=== PATIENT | female | born 1945 | race Caucasian/White ===

== ENCOUNTER → 2017-01-15 | Outpatient (CLI) | payer MEDICARE, OTHER ==
[~2017-01-15] MED LIST: ALDACTONE25 M1 PO; ARIMIDEX1 MG PO; ASPIRIN325 M2 PO; ASPIRIN325 MG PO; ATIVAN0.5 MG PO; CARDOXIN0.25 MG PO; CARVEDILOL6.25 MG PO; COREG25 MG PO; COREG3.125 MG PO; ELAVIL25 MG PO; FENOFIBRATE145 MG PO; JANUVIA100 MG PO; LANOXIN0.25 MG PO; LASIX20 MG PO; LASIX40 MG PO; LISINOPRIL10 MG PO; METFORMIN500 MG PO; MICRO-K EXTENCA8 MEQ PO; MICRO-K8 MEQ PO; NITRO TRANS0.2 MG/HR TD; PLAVIX75 MG PO; PRILOSEC20 MG PO; SIMVASTATIN20 MG PO; TRANSDERM-NITR0.2 MG TD; TRICOR145 MG PO; TYLENOL325 M1 PO; VITAMIN D1000 IU PO; ZOCOR20 MG PO; ZOCOR5 MG PO
== END | disposition home or self-care (01) ==
LOC: CT 09:45
DX: C15.9 Malignant neoplasm of esophagus, unspecified (principal); I25.10 Atherosclerotic heart disease of native coronary artery without angina pectoris; K76.89 Other specified diseases of liver; Z90.49 Acquired absence of other specified parts of digestive tract

== ENCOUNTER → 2017-06-17 | Outpatient (CLI) | payer MEDICARE, OTHER | END | disposition home or self-care (01) | LOC: MAMMO 08:30 | DX: Z45.2 Encounter for adjustment and management of vascular access device (principal); N64.4 Mastodynia; D64.9 Anemia, unspecified; R11.2 Nausea with vomiting, unspecified; D70.2 Other drug-induced agranulocytosis; Z85.01 Personal history of malignant neoplasm of esophagus; Z85.3 Personal history of malignant neoplasm of breast ==

== ENCOUNTER → 2017-07-07 | Outpatient (CLI) | payer MEDICARE, OTHER ==
[2017-07-07 08:47] LABS: CREATININE 1.36 mg/dL (0.55-1.02)
== END | disposition home or self-care (01) ==
LOC: LAB 08:02
PROVIDERS: Surgery
DX: C15.9 Malignant neoplasm of esophagus, unspecified (principal)

== ENCOUNTER → 2017-07-08 | Outpatient (CLI) | payer MEDICARE, OTHER | END | disposition home or self-care (01) | LOC: CT 02:07 | DX: C15.9 Malignant neoplasm of esophagus, unspecified (principal); C50.912 Malignant neoplasm of unspecified site of left female breast; I70.0 Atherosclerosis of aorta; K76.89 Other specified diseases of liver; Z90.49 Acquired absence of other specified parts of digestive tract ==

== ENCOUNTER → 2017-11-15 | Outpatient (CLI) | payer MEDICARE, OTHER ==
[2017-11-15 10:00] LABS: BASO % 0.5 % (0.0-1.0); EOS # 0.2 10*3/uL (0.0-0.4); EOS % 3.8 % (1.0-4.0); HEMATOCRIT 32.1 % (37.0-47.0); HEMOGLOBIN 10.5 g/dl (12.0-16.0); LYMPH # 1.6 10*3/uL (1.3-4.4); LYMPH % 29.3 % (27.0-41.0); MEAN CELL VOLUME 90.4 fl (81.0-99.0); MEAN CORPUSCULAR HGB 29.6 pg (27.0-31.0); MEAN CORPUSCULAR HGB CONC 32.7 g/dl (33.0-37.0); MEAN PLATELET VOLUME 9.2 fl (9.6-12.3); MONO # 0.3 10*3/uL (0.1-1.0); MONO % 4.9 % (3.0-9.0); NEUT # 3.4 10*3/uL (2.3-7.9); NEUT % 61.1 % (47.0-73.0); PLATELET COUNT AUTOMATED 192 10*3/uL (130-400); RED BLOOD COUNT 3.55 10*6/uL (4.10-5.10); WHITE BLOOD COUNT 5.5 10*3/uL (4.8-10.8)
[2017-11-15 10:17] LABS: ACT PARTIAL THROMBO TIME 25.8 SECONDS (20.8-31.5)
[2017-11-15 10:28] LABS: ALBUMIN 3.7 gm/dl (3.1-4.5); ALKALINE PHOSPHATASE 82 U/L (45-117); BILIRUBIN, DIRECT < 0.1 mg/dL (0.0-0.2); BUN 27 mg/dl (7-24); CHLORIDE 101 mmol/L (98-107); CREATININE 1.35 mg/dL (0.55-1.02); PHOSPHOROUS 3.8 mg/dL (2.5-4.9); SGOT/AST 19 IU/L (3-35); SGPT/ALT 20 U/L (12-78); SODIUM 139 mmol/L (136-145); TOTAL PROTEIN 6.9 gm/dL (6.4-8.2)
== END | disposition home or self-care (01) ==
LOC: LAB 09:41
PROVIDERS: Surgery
DX: Z01.818 Encounter for other preprocedural examination (principal); R94.31 Abnormal electrocardiogram [ECG] [EKG]; C15.9 Malignant neoplasm of esophagus, unspecified; K21.9 Gastro-esophageal reflux disease without esophagitis

== ENCOUNTER → 2017-12-30 | Outpatient (CLI) | payer MEDICARE, OTHER | END | disposition home or self-care (01) | LOC: RAD 13:23 | DX: R05 Cough (principal); R06.02 Shortness of breath; M54.9 Dorsalgia, unspecified ==

== ENCOUNTER → 2018-06-07 | Outpatient (CLI) | payer MEDICARE, OTHER ==
[2018-06-07 09:53] LABS: CREATININE 1.23 mg/dL (0.55-1.02)
== END | disposition home or self-care (01) ==
LOC: LAB 08:54 → CT 10:00
PROVIDERS: Surgery
DX: K44.9 Diaphragmatic hernia without obstruction or gangrene (principal)

== ENCOUNTER → 2018-06-23 | Outpatient (CLI) | payer MEDICARE, OTHER | END | disposition home or self-care (01) | LOC: MAMMO 08:46 | DX: R92.1 Mammographic calcification found on diagnostic imaging of breast (principal); Z85.3 Personal history of malignant neoplasm of breast; Z85.01 Personal history of malignant neoplasm of esophagus ==

== ENCOUNTER 2018-11-05 08:22 | Emergency (ER) | payer MEDICARE, OTHER ==
[~2018-11-05] VITALS: Ht 165.1 cm; Wt 76.2 kg
--- NOTE | ~2018-11-05 | EKG ---
[place], [place] ELECTROCARDIOGRAM REPORT NAME: YOSSI DORAOD UNIT #: [id number] [facility]: [facility] BIRTHDATE: [birth year] [facility] Test Date: 2018-11-05 Test Time: 11:05:58 Pat Name: YOSSI DORADO Department: Room: Gender: F Leaf Tier: Ana Luisa Martínez : 1945 Requested By: JEAN PAUL COX Order Number: [id number] Reading MD: Mounika Hernandez MD Measurements Intervals [place] Rate: 77 P: 24 DE: 135 QRS: -18 QRSD: 108 T: 12 QT: 401 QTc: 454 Interpretive Statements Sinus rhythm Borderline left axis deviation Borderline T abnormalities, inferior leads Electronically Signed On 11-05-2018 15:36:49 PDT by Mounika Hernandez MD CM:EKGRPT:ELECTROCARDIOGRAM REPORT [id number] JEAN PAUL NICHOLAS DRAFT REPORT JEAN PAUL COX DO
--- NOTE | ~2018-11-05 | EKG ---
[place], [place] ELECTROCARDIOGRAM REPORT NAME: YOSSI DORADO UNIT #: [id number] ROOM: DOCTOR: EPIPHANY DRAFT REPORT BIRTHDATE: [birth year] [facility] Test Date: 2018-11-05 Test Time: 08:31:14 Pat Name: YOSSI DORADO Department: Room: Gender: F [employer]: : 1945 Requested By: JEAN PAUL COX Order Number: [id number] Reading MD: Mounika Hernandez MD Measurements Intervals [place] Rate: 116 P: 17 IN: 137 QRS: -14 QRSD: 111 T: 20 QT: 333 QTc: 463 Interpretive Statements Sinus tachycardia Ventricular trigeminy Electronically Signed On 11-05-2018 15:36:04 PDT by Mounika Hernandez MD CM:EKGRPT:ELECTROCARDIOGRAM REPORT [id number] JEAN PAUL NICHOLAS DRAFT REPORT JEAN PAUL COX DO
[2018-11-05 08:51] LABS: BASO % 0.2 % (0.0-1.0); EOS # 0.1 10*3/uL (0.0-0.4); EOS % 2.6 % (1.0-4.0); HEMATOCRIT 33.3 % (37.0-47.0); HEMOGLOBIN 10.8 g/dl (12.0-16.0); LYMPH % 21.1 % (27.0-41.0); MEAN CELL VOLUME 90.7 fl (81.0-99.0); MEAN CORPUSCULAR HGB 29.4 pg (27.0-31.0); MEAN CORPUSCULAR HGB CONC 32.4 g/dl (33.0-37.0); MEAN PLATELET VOLUME 10.1 fl (9.6-12.3); MONO # 0.4 10*3/uL (0.1-1.0); MONO % 8.1 % (3.0-9.0); NEUT # 3.2 10*3/uL (2.3-7.9); NEUT % 67.6 % (47.0-73.0); PLATELET COUNT AUTOMATED 156 10*3/uL (130-400); RED BLOOD COUNT 3.67 10*6/uL (4.10-5.10); RED CELL DISTRI WIDTH 13.9 % (0-14.5); WHITE BLOOD COUNT 4.7 10*3/uL (4.8-10.8)
[2018-11-05 08:59] LABS: ACT PARTIAL THROMBO TIME 51.9 SECONDS (20.8-31.5)
[2018-11-05 09:13] LABS: ALBUMIN 3.2 gm/dl (3.1-4.5); ALKALINE PHOSPHATASE 85 U/L (45-117); BUN 28 mg/dl (7-24); CHLORIDE 107 mmol/L (98-107); CREATININE 1.57 mg/dL (0.55-1.02); POTASSIUM 3.7 mmol/L (3.5-5.1); SGOT/AST 16 IU/L (3-35); SGPT/ALT 16 U/L (12-78); SODIUM 138 mmol/L (136-145); TOTAL PROTEIN 6.7 gm/dL (6.4-8.2)
[2018-11-05 09:15] LABS: TROPONIN I < 0.015 ng/ml (<0.045)
[2018-11-05 12:35] VITALS: BP 134/81
== END 2018-11-05 13:10 | disposition home or self-care (01) ==
LOC: ED 08:22
PROVIDERS: Internal Medicine
DX: R07.81 Pleurodynia (principal); R19.7 Diarrhea, unspecified; I11.0 Hypertensive heart disease with heart failure; I50.9 Heart failure, unspecified; E11.9 Type 2 diabetes mellitus without complications; I25.2 Old myocardial infarction; Z85.3 Personal history of malignant neoplasm of breast; Z91.018 Allergy to other foods; Z79.899 Other long term (current) drug therapy

== ENCOUNTER → 2019-03-17 | Outpatient (CLI) | payer MEDICARE, OTHER | END | disposition home or self-care (01) | LOC: LAB 10:15 → RAD 10:15 | DX: M47.816 Spondylosis without myelopathy or radiculopathy, lumbar region (principal); M51.36 Other intervertebral disc degeneration, lumbar region; R05 Cough; R07.9 Chest pain, unspecified; M19.90 Unspecified osteoarthritis, unspecified site ==

== ENCOUNTER → 2019-05-31 | Outpatient (CLI) | payer MEDICARE, OTHER ==
[~2019-05-31] MED LIST changes: +AMITRIPTYLINE25 MG PO; +ASPIRIN FOR CHI81 MG PO; +PLAVIX75 M1 PO; +PRILOSEC20 M1 PO; -PRILOSEC20 MG PO; +REQUIP2 MG PO; -SIMVASTATIN20 MG PO; +SIMVASTATIN5 MG PO
--- NOTE | 2019-05-31 07:00 | NUR ---
INFORMED CONSENT OBTAINED FOR LEXISCAN NUCLEAR STRESS TESTING WITH DR. SALDIVAR. RESTING EKG NSR WITH OCCASIONAL PVC'S WITH A HR OF 76 AND BP OF 138/70. LUNGS CLEAR WITH SPO2 OF 99% ON ROOM AIR. PT COMPLETED A 1:00 LEXISCAN PROTOCOL RECEIVING LEXISCAN 0.4 MG IV OVER 10 SECONDS. HAD NO EKG CHANGES. DID C/O "CHEST TIGHTNESS, HOT FLASH AND ABDOMINIAL CRAMPING" THAT WAS RELIEVED IN RECOVERY. HAD A PEAK HR OF 92 WITH BP OF 122/60. LAST RECOVERY HR OF 84 WITH BP OF 120/62. AWAITING SCANNING IN STABLE CONDITION.
== END ==
LOC: CARD 00:16
DX: I20.9 Angina pectoris, unspecified (principal)

== ENCOUNTER → 2020-04-05 | Outpatient (CLI) | payer MEDICARE, OTHER ==
[2020-04-05 08:24] LABS: CHOLESTEROL 197 mg/dL (<200); HDL CHOLESTEROL 69 mg/dl (40-60); LDL CHOLESTEROL 108 mg/dL (9-159); TRIGLYCERIDES 101 mg/dl (<150); VLDL CHOLESTEROL 20 mg/dL (6-40)
== END | disposition home or self-care (01) ==
LOC: LAB 07:24
PROVIDERS: ATTEND Internal Medicine Cardiovascular Disease
DX: E78.5 Hyperlipidemia, unspecified (principal)

== ENCOUNTER → 2020-07-05 | Outpatient (CLI) | payer MEDICARE, OTHER | END | disposition home or self-care (01) | LOC: COVID19 09:10 | PROVIDERS: ATTEND Internal Medicine | DX: U07.1 COVID-19 (principal) ==

== ENCOUNTER → 2020-07-18 | Outpatient (CLI) | payer MEDICARE, OTHER | END | disposition home or self-care (01) | LOC: MAMMO 07-03 13:30 | PROVIDERS: ATTEND Internal Medicine Hematology & Oncology | DX: Z45.2 Encounter for adjustment and management of vascular access device (principal); Z85.01 Personal history of malignant neoplasm of esophagus; Z85.3 Personal history of malignant neoplasm of breast; Z98.890 Other specified postprocedural states ==

== ENCOUNTER → 2021-07-24 | Outpatient (CLI) | payer MEDICARE, OTHER | LOC: MAMMO 08:40 | PROVIDERS: ATTEND Internal Medicine Hematology & Oncology | DX: Z45.2 Encounter for adjustment and management of vascular access device (principal); Z85.3 Personal history of malignant neoplasm of breast; Z85.01 Personal history of malignant neoplasm of esophagus ==

== ENCOUNTER → 2021-08-21 | Outpatient (CLI) | payer MEDICARE, OTHER ==
[2021-08-21 13:24] LABS: BASO % 0.3 % (0.0-1.0); EOS # 0.3 10*3/uL (0.0-0.4); EOS % 3.7 % (1.0-4.0); HEMATOCRIT 33.6 % (37.0-47.0); LYMPH # 2.1 10*3/uL (1.3-4.4); LYMPH % 29.9 % (27.0-41.0); MEAN CELL VOLUME 92.8 fl (81.0-99.0); MEAN CORPUSCULAR HGB CONC 31.3 g/dl (33.0-37.0); MEAN PLATELET VOLUME 10.3 fl (9.6-12.3); MONO # 0.5 10*3/uL (0.1-1.0); MONO % 6.5 % (3.0-9.0); NEUT # 4.2 10*3/uL (2.3-7.9); NEUT % 59.3 % (47.0-73.0); PLATELET COUNT AUTOMATED 217 10*3/uL (130-400); RED BLOOD COUNT 3.62 10*6/uL (4.10-5.10); RED CELL DISTRI WIDTH 13.9 % (0-14.5); WHITE BLOOD COUNT 7.1 10*3/uL (4.8-10.8)
[2021-08-21 13:36] LABS: ACT PARTIAL THROMBO TIME 27.4 SECONDS (20.0-32.1)
[2021-08-21 13:44] LABS: ALBUMIN 3.6 gm/dl (3.1-4.5); CREATININE 2.03 mg/dL (0.55-1.02); POTASSIUM 5.1 mmol/L (3.5-5.1)
== END | disposition home or self-care (01) ==
LOC: LAB 11:46
PROVIDERS: ATTEND Surgery
DX: I44.7 Left bundle-branch block, unspecified (principal); R94.31 Abnormal electrocardiogram [ECG] [EKG]; I49.3 Ventricular premature depolarization; C15.9 Malignant neoplasm of esophagus, unspecified; Z01.818 Encounter for other preprocedural examination

== ENCOUNTER → 2021-10-07 | Outpatient (CLI) | payer MEDICARE, OTHER ==
[2021-10-07 11:42] LABS: POTASSIUM 4.9 mmol/L (3.5-5.1)
[2021-10-07 12:00] LABS: CREATININE 1.95 mg/dL (0.55-1.02)
== END | disposition home or self-care (01) ==
LOC: LAB 09:28 → CARD 09:30
PROVIDERS: ATTEND Internal Medicine
DX: R06.02 Shortness of breath (principal); N17.9 Acute kidney failure, unspecified

== ENCOUNTER → 2021-11-05 | Outpatient (CLI) | payer MEDICARE, OTHER ==
[~2021-11-05] MED LIST changes: +PROTONIX40 MG PO
== END | disposition home or self-care (01) ==
LOC: CARD 00:22
PROVIDERS: ATTEND Internal Medicine Cardiovascular Disease
DX: I25.5 Ischemic cardiomyopathy (principal); R94.31 Abnormal electrocardiogram [ECG] [EKG]

== ENCOUNTER → 2021-12-11 | Outpatient (CLI) | payer MEDICARE, OTHER | END | disposition home or self-care (01) | LOC: RAD 13:30 | PROVIDERS: ATTEND Internal Medicine | DX: J43.9 Emphysema, unspecified (principal); I51.7 Cardiomegaly; Z78.0 Asymptomatic menopausal state ==

== ENCOUNTER → 2022-05-27 | Outpatient (CLI) | payer MEDICARE, OTHER | END | disposition home or self-care (01) | LOC: CARD 11:31 | PROVIDERS: ATTEND Internal Medicine Cardiovascular Disease | DX: I51.7 Cardiomegaly (principal); I25.5 Ischemic cardiomyopathy ==

== ENCOUNTER → 2022-06-06 | Outpatient (CLI) | payer MEDICARE, OTHER ==
[2022-06-06 10:48] LABS: CREATININE 1.67 mg/dL (0.55-1.02); POTASSIUM 4.4 mmol/L (3.5-5.1)
== END ==
LOC: LAB 09:33
PROVIDERS: ATTEND Internal Medicine Cardiovascular Disease
DX: I10 Essential (primary) hypertension (principal)

== ENCOUNTER → 2022-07-30 | Outpatient (CLI) | payer MEDICARE, OTHER | END | disposition home or self-care (01) | LOC: MAMMO 02:03 | PROVIDERS: ATTEND Internal Medicine Hematology & Oncology | DX: C50.919 Malignant neoplasm of unspecified site of unspecified female breast (principal); Z45.2 Encounter for adjustment and management of vascular access device; R92.2 Inconclusive mammogram; Z85.01 Personal history of malignant neoplasm of esophagus; Z85.3 Personal history of malignant neoplasm of breast ==

== ENCOUNTER → 2022-12-03 | Outpatient (CLI) | payer MEDICARE, OTHER | END | disposition home or self-care (01) | LOC: US 15:45 | PROVIDERS: ATTEND Internal Medicine | DX: N13.30 Unspecified hydronephrosis (principal); N18.31 Chronic kidney disease, stage 3a ==

== ENCOUNTER → 2023-07-30 | Outpatient (CLI) | payer MEDICARE, OTHER | END | disposition home or self-care (01) | LOC: MAMMO 08:39 | PROVIDERS: ATTEND Internal Medicine Hematology & Oncology | DX: C50.919 Malignant neoplasm of unspecified site of unspecified female breast (principal); Z85.01 Personal history of malignant neoplasm of esophagus; Z85.3 Personal history of malignant neoplasm of breast; Z45.2 Encounter for adjustment and management of vascular access device ==

== ENCOUNTER → 2023-11-21 | Outpatient (CLI) | payer MEDICARE, OTHER | END | disposition home or self-care (01) | LOC: RAD 09:37 | PROVIDERS: ATTEND Internal Medicine | DX: M17.12 Unilateral primary osteoarthritis, left knee (principal) ==

== ENCOUNTER → 2024-01-28 | Outpatient (CLI) | payer MEDICARE, OTHER | END | disposition home or self-care (01) | LOC: CARD 02:21 | PROVIDERS: ATTEND Internal Medicine Cardiovascular Disease | DX: I49.3 Ventricular premature depolarization (principal); I25.10 Atherosclerotic heart disease of native coronary artery without angina pectoris; R55 Syncope and collapse ==

== ENCOUNTER → 2024-02-09 | Outpatient (CLI) | payer MEDICARE, OTHER | END | disposition home or self-care (01) | LOC: CARD 01:38 | PROVIDERS: ATTEND Internal Medicine Cardiovascular Disease | DX: I05.8 Other rheumatic mitral valve diseases (principal); I25.10 Atherosclerotic heart disease of native coronary artery without angina pectoris; R55 Syncope and collapse ==

== ENCOUNTER → 2024-02-18 | Outpatient (CLI) | payer MEDICARE, OTHER ==
[2024-02-18 10:08] LABS: HEMATOCRIT 30.9 % (37.0-47.0)
[2024-02-18 10:26] LABS: POTASSIUM 5.2 mmol/L (3.4-5.1)
== END | disposition home or self-care (01) ==
LOC: LAB 09:28
PROVIDERS: ATTEND Internal Medicine Cardiovascular Disease
DX: I25.10 Atherosclerotic heart disease of native coronary artery without angina pectoris (principal)

== ENCOUNTER → 2024-06-09 | Outpatient (CLI) | payer MEDICARE, OTHER ==
[2024-06-09 09:45] LABS: EOS # 0.1 10*3/uL (0.0-0.4); EOS % 3.4 % (1.0-4.0); HEMATOCRIT 29.6 % (37.0-47.0); MEAN CORPUSCULAR HGB 30.8 pg (27.0-31.0); MEAN CORPUSCULAR HGB CONC 32.8 g/dl (33.0-37.0); MEAN PLATELET VOLUME 9.5 fl (9.6-12.3); MONO # 0.3 10*3/uL (0.1-1.0); MONO % 6.5 % (3.0-9.0); NEUT # 2.5 10*3/uL (2.3-7.9); NEUT % 59.2 % (47.0-73.0); PLATELET COUNT AUTOMATED 162 10*3/uL (130-400); RED BLOOD COUNT 3.15 10*6/uL (4.10-5.10); RED CELL DISTRI WIDTH 13.8 % (0-14.5); WHITE BLOOD COUNT 4.2 10*3/uL (4.8-10.8)
[2024-06-09 10:11] LABS: ALKALINE PHOSPHATASE 72 U/L (46-116); BUN 47 mg/dl (9-23); CHLORIDE 104 mmol/L (98-107); CHOLESTEROL 170 mg/dL (<200); FREE T4 1.51 ng/dl (0.89-1.76); LDL CHOLESTEROL 91 mg/dL (9-159); POTASSIUM 4.2 mmol/L (3.4-5.1); TOTAL PROTEIN 6.5 gm/dL (6.0-8.0); TRIGLYCERIDES 93 mg/dl (<150)
[2024-06-09 10:13] LABS: SGPT/ALT < 7 U/L (5-49)
[2024-06-09 10:22] LABS: VITAMIN D, 25-HYDROXY 34.2 ng/mL (30-100)
[2024-06-09 12:39] LABS: BILIRUBIN Negative (Negative); BLOOD Negative (Negative); CLARITY Clear (Clear); COLOR Yellow (Yellow); GLUCOSE Negative (Negative); KETONE Negative (Negative); LEUKO ESTERASE 2+ (Negative); NITRITE Negative (Negative); PH 5.5 (4.5-8.0); SPECIFIC GRAVITY <= 1.005 (1.001-1.030); UROBILINOGEN 0.2 E.U./dl (0.0-1.0)
[2024-06-09 12:46] LABS: URINE CREATININE RANDOM 24.07 mg/dL
[2024-06-09 13:48] LABS: BACTERIA 2+; RBC 0-2 rbc/hpf (0-2); WBC 21-30 wbc/hpf (0-5)
== END | disposition home or self-care (01) ==
LOC: LAB 09:09
PROVIDERS: Internal Medicine; ATTEND Internal Medicine Nephrology
DX: Z13.228 Encounter for screening for other metabolic disorders (principal); Z13.21 Encounter for screening for nutritional disorder; Z13.89 Encounter for screening for other disorder; Z13.6 Encounter for screening for cardiovascular disorders; Z13.29 Encounter for screening for other suspected endocrine disorder; Z13.220 Encounter for screening for lipoid disorders; Z13.1 Encounter for screening for diabetes mellitus; E55.9 Vitamin D deficiency, unspecified; R53.83 Other fatigue; I51.9 Heart disease, unspecified; I12.9 Hypertensive chronic kidney disease with stage 1 through stage 4 chronic kidney disease, or unspecified chronic kidney disease; N18.32 Chronic kidney disease, stage 3b

== ENCOUNTER → 2024-09-01 | Outpatient (CLI) | payer MEDICARE, OTHER | END | disposition home or self-care (01) | LOC: MAMMO 08-04 09:00 | PROVIDERS: ATTEND Internal Medicine Hematology & Oncology | DX: N64.89 Other specified disorders of breast (principal) ==

== ENCOUNTER → 2024-11-12 | Outpatient (CLI) | payer MEDICARE, OTHER | END | disposition home or self-care (01) | LOC: RAD 09:53 | PROVIDERS: ATTEND Internal Medicine | DX: M51.34 Other intervertebral disc degeneration, thoracic region (principal); G89.29 Other chronic pain ==

== ENCOUNTER → 2025-02-07 | Outpatient (CLI) | payer MEDICARE, OTHER ==
[2025-02-07 09:42] LABS: BASO # 0.0 10*3/uL (0.0-0.1); BASO % 0.4 % (0.0-1.0); EOS # 0.2 10*3/uL (0.0-0.4); EOS % 3.5 % (1.0-4.0); MEAN CELL VOLUME 95.2 fl (81.0-99.0); MEAN CORPUSCULAR HGB 31.3 pg (27.0-31.0); MEAN PLATELET VOLUME 8.8 fl (9.6-12.3); MONO # 0.3 10*3/uL (0.1-1.0); MONO % 6.5 % (3.0-9.0); NEUT # 3.1 10*3/uL (2.3-7.9); NEUT % 62.4 % (47.0-73.0); NUCLEATED RED BLOOD CELL 0.0 % (0.0-0.0); NUCLEATED RED BLOOD CELL 0.0 10*3/uL (0.0-0.0); PLATELET COUNT AUTOMATED 175 10*3/uL (130-400); RED CELL DISTRI WIDTH 13.8 % (0-14.5)
[2025-02-07 09:57] LABS: ACT PARTIAL THROMBO TIME 26.2 SECONDS (20.0-32.1)
== END | disposition home or self-care (01) ==
LOC: LAB 09:20
PROVIDERS: ATTEND Internal Medicine
DX: Z01.812 Encounter for preprocedural laboratory examination (principal); I48.91 Unspecified atrial fibrillation; R53.81 Other malaise

== ENCOUNTER → 2025-04-28 | Outpatient (CLI) | payer MEDICARE, OTHER ==
[2025-04-28 10:05] LABS: BASO # 0.0 10*3/uL (0.0-0.1); BASO % 0.8 % (0.0-1.0); EOS # 0.1 10*3/uL (0.0-0.4); EOS % 3.0 % (1.0-4.0); MEAN CELL VOLUME 95.6 fl (81.0-99.0); MEAN CORPUSCULAR HGB 30.3 pg (27.0-31.0); MEAN PLATELET VOLUME 9.8 fl (9.6-12.3); MONO # 0.3 10*3/uL (0.1-1.0); MONO % 7.6 % (3.0-9.0); NEUT # 2.2 10*3/uL (2.3-7.9); NEUT % 56.0 % (47.0-73.0); NUCLEATED RED BLOOD CELL 0.0 % (0.0-0.0); NUCLEATED RED BLOOD CELL 0.0 10*3/uL (0.0-0.0); PLATELET COUNT AUTOMATED 173 10*3/uL (130-400); RED CELL DISTRI WIDTH 13.5 % (0-14.5)
[2025-04-28 10:23] LABS: ACT PARTIAL THROMBO TIME 25.4 SECONDS (20.0-32.1)
[2025-04-28 10:35] LABS: BUN 31.0 mg/dl (9-23); SGPT/ALT 8.0 U/L (5-49)
== END | disposition home or self-care (01) ==
LOC: LAB 09:16
PROVIDERS: ATTEND Surgery
DX: Z01.818 Encounter for other preprocedural examination (principal); I44.7 Left bundle-branch block, unspecified; I49.3 Ventricular premature depolarization; I51.7 Cardiomegaly; C15.9 Malignant neoplasm of esophagus, unspecified; I48.91 Unspecified atrial fibrillation